=== PATIENT | male | born 1985 | race Caucasian/White ===

== ENCOUNTER 2018-06-04 13:30 | Emergency (ER) | payer OTHER, BC | END 2018-06-04 16:04 | disposition home or self-care (01) | LOC: ED 13:30 ==

== ENCOUNTER 2018-08-25 06:48 | Emergency (ER) | payer OTHER ==
[~2018-08-25] VITALS: Ht 185.4 cm; Wt 104.8 kg
[2018-08-25 07:00] VITALS: Ht 185.4 cm; Wt 104.8 kg
[2018-08-25 10:40] VITALS: BP 137/108
== END 2018-08-25 10:40 | disposition home or self-care (01) ==
LOC: ED 06:48
DX: G44.209 Tension-type headache, unspecified, not intractable (principal); Z88.8 Allergy status to other drugs, medicaments and biological substances
CPT/HCPCS: J1885; J2765; J7030

== ENCOUNTER 2019-09-12 22:37 | Emergency (ER) | payer OTHER ==
[~2019-09-12] VITALS: Ht 185.4 cm; Wt 99.8 kg
[2019-09-12 22:43] VITALS: Ht 185.4 cm; Wt 99.8 kg
[2019-09-13 00:03] VITALS: BP 119/79
== END 2019-09-13 00:03 | disposition home or self-care (01) ==
LOC: ED 22:37
DX: T25.022A Burn of unspecified degree of left foot, initial encounter (principal); F17.210 Nicotine dependence, cigarettes, uncomplicated; X10.2XXA Contact with fats and cooking oils, initial encounter; Y93.89 Activity, other specified; Y92.89 Other specified places as the place of occurrence of the external cause; Y99.8 Other external cause status; Z88.8 Allergy status to other drugs, medicaments and biological substances
CPT/HCPCS: J2270